=== PATIENT | female | born 1940 | race Caucasian/White ===

== ENCOUNTER 2016-08-12 09:22 | Inpatient (IN) ==
[2016-08-12 12:15] LABS: ALLEN TEST YES; BE 3.2 mmoll (-3.0-3.0); BLOOD TYPE ARTERIAL; DRAW SITE R RADIAL; PCO2(98.6) 37 mmHg (35-45); SAMPLE BLOOD; THB 11.7 g/dL (11.5-17.4); pH(98.6) 7.47 (7.35-7.45)
--- NOTE | 2016-08-12 12:20 | Diag Imaging Result Document ---
PROCEDURE NAME: CHEST-2 VIEWS - 08/12/2016 FRONTAL AND LATERAL CHEST, TWO VIEWS: FINDINGS: The lungs are hyperexpanded. There is an increased AP diameter to the chest. No consolidation. No cardiomegaly. No pleural effusions. There is a calcified granuloma in the left apex. IMPRESSION: Emphysema.
[2016-08-12 12:23] LABS: MANUAL DIFF NEEDED? NO
[2016-08-12 12:23] LABS: PO2(98.6) 46 mmHg (60-100)
[2016-08-12] MEDS: SODIUM CHLORIDE 0.9% INJ SCH (12:30)
[2016-08-12] MEDS: NS + KCL 20 MEQ 1,000 ML IV SCH (12:30)
[2016-08-12] MEDS: PROTONIX IV SCH (12:30)
[2016-08-12] MEDS: LOVENOX SUBQ SCH (12:30)
[2016-08-12] MEDS: LEVAQUIN 500 MG/D5W 500 MG/100 ML IVPB IV SCH (12:31)
[2016-08-12] MEDS: ROCEPHIN 1 GM/NS 1 GM/50 ML IVPB IV SCH (12:31)
[2016-08-12 12:36] LABS: BASO% 0.1 % (0.0-0.8); HEMATOCRIT 36.8 % (37.0-47.0); HEMOGLOBIN 12.4 g/dL (12.0-16.0); IMM GRAN# 0.02 X1000 (0.0-0.04); IMM GRAN% 0.2 % (0.0-0.5); LYMPH# 1.32 X1000 (1.2-3.4); LYMPH% 11.1 % (20.5-51.1); MCHC 33.7 g/dL (33-37); MCV 94.8 FL (81-99); MONO# 1.18 X1000 (0.11-0.59); MONO% 9.9 % (1.7-9.3); MPV 9.8 FL (7.4-10.4); NEUT% 78.7 % (42.2-75.2); PLT 241 X1000 (130-400); RBC 3.88 XMIL (4.2-5.4)
[2016-08-12] MEDS: SOLU-MEDROL IV SCH ×3 (12:39→20:01)
--- NOTE | 2016-08-12 13:24 | EKG Report ---
Test Performed on : 08/12/2016 1:00:38 PM Test Reason : copd Blood Pressure : / mmHG Vent. Rate : 073 BPM Atrial Rate : 073 BPM P-R Int : 138 ms QRS Dur : 070 ms QT Int : 400 ms P-R-T Axes : 081 -14 088 degrees QTc Int : 440 ms Normal sinus rhythm. Septal infarct (cited on or before 23-AUG-2014) Abnormal ECG When compared with ECG of 29-MAY-2015 09:44, Nonspecific T wave abnormality now evident in Lateral leads Confirmed by Ronald DUKES, James Villeda ([id number]) on 08/14/2016 5:33:48 PM
[2016-08-12 13:58] LABS: AGAP 15; ALBUMIN 3.5 g/dL (3.5-5.0); ALKALINE PHOSPHATASE 59 U/L (32-104); BUN 19 mg/dL (8-22); CALCIUM 8.8 mg/dL (8.8-10.2); CHLORIDE 94 mmol/L (98-107); COSMO 271; GOT 37 U/L (10-30); GPT 19 U/L (10-36); POTASSIUM 4.1 mmol/L (3.5-5.1); SODIUM 135 mmol/L (136-145); TCO2 26 mmol/L (25-35); TOTAL BILIRUBIN 0.17 mg/dL (0.20-1.00); TOTAL PROTEIN 6.7 g/dL (6.3-8.3)
[2016-08-12] MEDS: EXELON 13.3MG/24HRS TD SCH (17:04)
[2016-08-12] MEDS: DUONEB (A & A) INH SCH ×2 (17:14→21:40)
[2016-08-12] MEDS ORDERED: LACTULOSE PO PRN (17:36)
[2016-08-12] MEDS: SINGULAIR PO SCH (20:01)
[2016-08-12] MEDS: TOPROL XL PO SCH (20:01)
[2016-08-12] MEDS: NAMENDA PO SCH (20:01)
[2016-08-12] MEDS: REMERON PO SCH (20:01)
[2016-08-12] MEDS: AMBIEN PO SCH (20:01)
[2016-08-12] MEDS: NEURONTIN PO SCH (20:01)
--- NOTE | 2016-08-12 22:17 | HISTORY AND PHYSICAL ---
CHIEF COMPLAINT: Chest congestion and shortness of breath. HISTORY OF PRESENT ILLNESS: Ms. Campbell is a 75-year-old white female patient, who was sick for the last 4 to 5 days, chest congestion, cough, expectoration, feverish feeling, increasing shortness of breath, decreased exercise tolerance. The patient then came to my office on Friday. I started her on antibiotics because her recently , and they had visitation and on Friday and Friday. The patient took antibiotics. She was not doing better. The patient was getting sicker, increasing wheezing, shortness of breath, decreased exercise tolerance. I evaluated patient in my office, and decided to admit her for further care, as patient was not responding to outpatient treatment. The patient's oral intake was poor. She lost 7 to 8 pounds of weight in last few weeks. She denied any hemoptysis. She did have chills and fever, some pleuritic type of chest pain. Dull headache. The patient does have gastritis and reflux disease. No typical chest pain. Occasional palpitations. Denied any nausea or vomiting. No diarrhea, blood, or mucus in the stool. No dysuria or hematuria. Vague abdominal pain. The patient does feel depressed. No joint swelling or redness. No heat or cold intolerance. The patient does have dementia, at times confusion. Patient does have polymyalgia and, fatigue. No focal numbness, tingling, weakness. No further history available at this time. ALLERGIES: No known drug allergy. HOME MEDICATIONS: The patient was on prednisone, Ventolin HFA, Dexilant, , vitamin D3, Chlorazepate, vitamin B12, Cymbalta, Namenda, Exelon patch, vitamin B 12, folic acid, Neurontin, lactulose, lisinopril, metoprolol, Remeron, Ambien. PAST MEDICAL HISTORY: Significant for gastritis and reflux disease, COPD, hypertension, dementia, situational depression, osteoarthritis, polymyalgia rheumatica. PERSONAL HISTORY: A , nonsmoker. Denies alcohol or substance abuse. FAMILY HISTORY: Significant for dementia, hypertension and hyperlipidemia. REVIEW OF SYSTEMS: As per HPI. Otherwise unobtainable. PHYSICAL EXAMINATION: GENERAL: Elderly white female patient, in mild distress. VITAL SIGNS: Blood pressure 100/42, pulse 79, respiration 18, temperature 97.3. SKIN: Senile turgor. No rash or petechiae. HEENT: Head atraumatic, normocephalic. Lemmon conjunctivae. Anicteric sclerae. Extraocular muscle movement normal. Fundus cannot be penetrated. Good oral hygiene. No tonsillopharyngeal congestion or exudate. Ears and nose benign. NECK: Supple. No JVD, thyromegaly or lymphadenopathy. CHEST: Bilateral good air entry present. Bibasilar crepitation. Occasional wheezing. CARDIOVASCULAR: S1 and S2 heard. No gallop or thrill. ABDOMEN: Soft, globular. Bowel sounds present. Mild epigastric tenderness. No guarding or rigidity. EXTREMITIES: No cyanosis, clubbing. No acute DVT. AUDIOMETRIC TECHNICIAN: Alert, awake, able to move all 4 limbs. MUSCULOSKELETAL: No acute synovitis. Vague tenderness lumbosacral spine. CONSIDERATION: 1. Acute exacerbation of COPD. 2. Acute on chronic respiratory failure, not responding to outpatient treatment. 3. Polymyalgia rheumatica. 4. Dementia. 5. Gastritis. 6. Reflux disease. 7. History of hypertension. LAB DATA: Revealed leukocytosis with left shift. Hemoglobin 12.4, hematocrit 36.8, platelet count was 241,000. Blood gas pH 7.47, pCO2 of 37, PO2 was 46. The patient is hypoxemic. Electrolytes were fairly benign. Chest x-ray did reveal COPD. PLAN: Admit patient. IV antibiotics. Pulmonary toilet. Oxygen, continue home medicine. Overall plan discussed at length with the patient, and she is in agreement. cc: Clovis Villasenor MD
[2016-08-13] MEDS: DUONEB (A & A) INH SCH ×4 (04:00→21:00)
[2016-08-13] MEDS: NS + KCL 20 MEQ 1,000 ML IV SCH ×2 (06:01→11:33)
[2016-08-13] MEDS: SOLU-MEDROL IV SCH ×3 (06:01→20:27)
[2016-08-13] MEDS: VITAMIN B-12 PO SCH (08:25)
[2016-08-13] MEDS: FOLIC ACID PO SCH (08:25)
[2016-08-13] MEDS: CYMBALTA PO SCH (08:25)
[2016-08-13] MEDS: EXELON 13.3MG/24HRS TD SCH (08:25)
[2016-08-13] MEDS: NEURONTIN PO SCH ×2 (08:25→20:27)
[2016-08-13] MEDS: VITAMIN D PO SCH (08:25)
[2016-08-13] MEDS: NAMENDA PO SCH ×2 (08:26→20:29)
[2016-08-13] MEDS: FISH OIL CONCENTRATE PO SCH (08:26)
[2016-08-13] MEDS: TRANXENE PO SCH ×3 (08:30→17:38)
[2016-08-13] MEDS: PRINIVIL PO SCH (08:30)
[2016-08-13] MEDS ORDERED: PRINIVIL PO SCH (09:00)
--- NOTE | 2016-08-13 10:18 | PROGRESS NOTE ---
DATE: 08/13/2016 SUBJECTIVE: Ms Banda is doing better. She still has a cough, chest congestion, wheezing. No high-grade fever or chills. No nausea or vomiting. No typical chest pain. Denied any dysuria or hematuria. No unusual agitation. The patient does have dementia. Admitted with COPD exacerbation. Initial chest x-ray was negative for pneumonia. OBJECTIVE: Vital signs: Reviewed. Neck: Supple. No JVD. Lungs: Bilateral good air entry present. Bilateral expiratory wheezing. CVS: S1 and S2 heard. Abdomen: Soft, globular. Bowel sounds present. ACADEMIC SUPPORT DIRECTOR: Alert, awake. Able to move all 4 limbs. The patient's labs and medications noted. CONSIDERATIONS: 1. Chronic obstructive pulmonary disease exacerbation. 2. Respiratory failure. 3. Dementia. 4. Gastritis and reflux disease. 5. Situational depression. PLAN: We will continue current treatment. Her blood pressure is staying low-normal. I am going to decrease her Zestril. Will repeat blood work and chest x-ray in the morning. Overall plan discussed with the son and he is in agreement. cc: Clovis Villasenor MD
[2016-08-13] MEDS: LOVENOX SUBQ SCH (11:33)
[2016-08-13] MEDS: ROCEPHIN 1 GM/NS 1 GM/50 ML IVPB IV SCH (11:34)
[2016-08-13] MEDS: PROTONIX IV SCH (11:34)
[2016-08-13] MEDS ORDERED: TYLENOL PO PRN (14:06)
[2016-08-13] MEDS: LEVAQUIN 500 MG/D5W 500 MG/100 ML IVPB IV SCH (14:32)
[2016-08-13] MEDS: SODIUM CHLORIDE 0.9% INJ SCH (14:32)
[2016-08-13] MEDS: REMERON PO SCH (20:27)
[2016-08-13] MEDS: AMBIEN PO SCH (20:28)
[2016-08-13] MEDS: TOPROL XL PO SCH (20:29)
[2016-08-13] MEDS: SINGULAIR PO SCH (20:29)
[2016-08-14] MEDS: DUONEB (A & A) INH SCH ×4 (03:14→22:05)
[2016-08-14] MEDS: SOLU-MEDROL IV SCH ×3 (04:11→20:20)
[2016-08-14] MEDS: NS + KCL 20 MEQ 1,000 ML IV SCH ×3 (04:11→18:25)
[2016-08-14] MEDS ORDERED: NORCO-5 PO PRN (06:41)
--- NOTE | 2016-08-14 07:20 | PROGRESS NOTE ---
DATE: 08/14/2016 SUBJECTIVELY: Ms. Banda is doing better. She still has some cough. Chest congestion is less. No high-grade fever or chills. Shortness of breath is improving. No nausea or vomiting. Complaining of pain in the neck and lower back, musculoskeletal. Patient admitted with COPD exacerbation. Initial chest x-ray was negative for pneumonia. OBJECTIVE: Vital signs: Reviewed. Neck: Supple. No JVD. Lungs: Bilateral good air entry present. Occasional wheezing. CVS: S1 and S2 heard. Abdomen: Soft. No distention. Bowel sounds present. WELDER APPRENTICE ARC: Alert, awake, able to move all 4 limbs. Vague tenderness lumbosacral spine. CONSIDERATION/ASSESSMENT: 1. Chronic obstructive pulmonary disease exacerbation. 2. Low back pain and neck pain, musculoskeletal. 3. Patient does have dementia. 4. Her other problems includes clinical dehydration and weight loss. The patient is on Rocephin and Levaquin. Labs and medication noted. 5. Her other problem includes gastritis. I am going to follow today's labs. After reviewing the results, will make necessary recommendations. PLAN: Overall plan discussed with the patient and son they are in agreement. If clinical condition permits, we will plan discharging patient home tomorrow. cc: Clovis Villasenor MD
[2016-08-14] MEDS: PRINIVIL PO SCH (07:40)
[2016-08-14] MEDS: FOLIC ACID PO SCH ×2 (07:50→10:52)
[2016-08-14] MEDS: VITAMIN B-12 PO SCH ×2 (07:50→10:52)
[2016-08-14] MEDS: TRANXENE PO SCH ×4 (07:51→20:20)
[2016-08-14] MEDS: FISH OIL CONCENTRATE PO SCH ×2 (07:51→10:51)
[2016-08-14] MEDS: EXELON 13.3MG/24HRS TD SCH ×2 (07:52→10:51)
[2016-08-14] MEDS: CYMBALTA PO SCH ×2 (07:52→10:51)
[2016-08-14] MEDS: NAMENDA PO SCH ×3 (07:52→20:20)
[2016-08-14] MEDS: VITAMIN D PO SCH ×2 (07:52→10:53)
[2016-08-14] MEDS: NEURONTIN PO SCH ×3 (07:52→20:20)
--- NOTE | 2016-08-14 08:39 | Diag Imaging Result Document ---
PROCEDURE NAME: CHEST-2 VIEWS - 08/14/2016 PA AND LATERAL RADIOGRAPH OF THE CHEST: COMPARISON: 08/12/2016. FINDINGS: Emphysematous changes are again noted. There are no new consolidations identified. Cardiac silhouette is stable. IMPRESSION: Stable chest.
[2016-08-14 09:36] LABS: BASO% 0.3 % (0.0-0.8); EOS# 0.33 X1000 (0.0-0.7); EOS% 3.7 % (0.0-10.0); HEMATOCRIT 35.9 % (37.0-47.0); HEMOGLOBIN 11.7 g/dL (12.0-16.0); IMM GRAN# 0.06 X1000 (0.0-0.04); IMM GRAN% 0.7 % (0.0-0.5); LYMPH# 0.53 X1000 (1.2-3.4); LYMPH% 5.9 % (20.5-51.1); MANUAL DIFF NEEDED? YES; MCH 32.1 PG (27-31); MCHC 32.6 g/dL (33-37); MCV 98.4 FL (81-99); MONO# 0.34 X1000 (0.11-0.59); MONO% 3.8 % (1.7-9.3); MPV 11.2 FL (7.4-10.4); NEUT% 85.6 % (42.2-75.2); PLT 192 X1000 (130-400); RBC 3.65 XMIL (4.2-5.4)
[2016-08-14 09:56] LABS: BANDS 2 % (0-1); LYMPHS 8 % (21-51); MONO 8 % (1-9)
[2016-08-14 10:15] LABS: AGAP 20; ALBUMIN 3.1 g/dL (3.5-5.0); ALKALINE PHOSPHATASE 54 U/L (32-104); BUN 16 mg/dL (8-22); CALCIUM 8.9 mg/dL (8.8-10.2); CHLORIDE 99 mmol/L (98-107); COSMO 280; GOT 53 U/L (10-30); GPT 35 U/L (10-36); MAGNESIUM 1.7 mg/dL (1.5-2.7); POTASSIUM 4.8 mmol/L (3.5-5.1); SODIUM 138 mmol/L (136-145); TCO2 19 mmol/L (25-35); TOTAL BILIRUBIN 0.12 mg/dL (0.20-1.00); TOTAL PROTEIN 6.8 g/dL (6.3-8.3)
[2016-08-14] MEDS: ROCEPHIN 1 GM/NS 1 GM/50 ML IVPB IV SCH (11:43)
[2016-08-14] MEDS: PROTONIX IV SCH (11:43)
[2016-08-14] MEDS: SODIUM CHLORIDE 0.9% INJ SCH (11:43)
[2016-08-14] MEDS: LOVENOX SUBQ SCH (11:43)
[2016-08-14] MEDS: LEVAQUIN 500 MG/D5W 500 MG/100 ML IVPB IV SCH (12:57)
[2016-08-14] MEDS: AMBIEN PO SCH (20:20)
[2016-08-14] MEDS: SINGULAIR PO SCH (20:20)
[2016-08-14] MEDS: REMERON PO SCH (20:20)
[2016-08-14] MEDS: TOPROL XL PO SCH (20:21)
[2016-08-15] MEDS: DUONEB (A & A) INH SCH ×4 (03:30→20:35)
[2016-08-15] MEDS: SOLU-MEDROL IV SCH (05:14)
[2016-08-15] MEDS ORDERED: LASIX IV ONE (06:41)
[2016-08-15] MEDS: FISH OIL CONCENTRATE PO SCH (09:29)
[2016-08-15] MEDS: VITAMIN D PO SCH (09:29)
[2016-08-15] MEDS: VITAMIN B-12 PO SCH (09:29)
[2016-08-15] MEDS: FOLIC ACID PO SCH (09:29)
[2016-08-15] MEDS: CYMBALTA PO SCH (09:29)
[2016-08-15] MEDS: PRINIVIL PO SCH (09:29)
[2016-08-15] MEDS: TRANXENE PO SCH ×3 (09:29→17:00)
[2016-08-15] MEDS: NAMENDA PO SCH ×2 (09:30→20:48)
[2016-08-15] MEDS: EXELON 13.3MG/24HRS TD SCH (09:30)
[2016-08-15] MEDS: NEURONTIN PO SCH ×2 (09:30→20:48)
[2016-08-15] MEDS: PREDNISONE PO SCH (09:33)
--- NOTE | 2016-08-15 10:57 | PROGRESS NOTE ---
DATE: 08/15/2016 SUBJECTIVE: Subjectively, Ms. Banda is doing better. Chest congestion and cough is improving. The patient does get shortness of breath with exertion. She was able to ambulate better. No nausea or vomiting. No high-grade fever. Oral intake is fair. Her chest x-ray done yesterday was stable chest. It did show significant emphysema. No unusual agitation. At times O2 saturation was staying low. OBJECTIVE: Vital Signs: Her vital signs reviewed. Neck: Supple. No jugular venous distention. Lungs: Bibasilar, few crepitations. Occasional wheezing. Cardiovascular: S1 and S2 heard. Abdomen: Soft, globular. Bowel sounds present. Extremities: No cyanosis, clubbing. No acute deep venous thrombosis. SUPERVISOR METAL PLACING: Alert, awake, able to move all 4 limbs. CONSIDERATION: 1. Chronic obstructive pulmonary disease exacerbation. 2. Bronchitis. 3. Dementia. I am going to check her for home oxygen requirement and depression. 4. Peripheral neuropathy. Patient have psychiatrist appointment and family wants to take her for the same. We will continue current treatment. I am going to stop her Solu-Medrol. Change her to p.o. prednisone. Will repeat blood work today. Overall plan discussed with patient and son and they are in agreement. I am going to give her a small dose of IV Lasix for fluid retention. cc: Clovis Villasenor MD
[2016-08-15] MEDS: PROTONIX IV SCH (13:02)
[2016-08-15] MEDS: LOVENOX SUBQ SCH (13:02)
[2016-08-15] MEDS: SODIUM CHLORIDE 0.9% INJ SCH (13:02)
[2016-08-15] MEDS: ROCEPHIN 1 GM/NS 1 GM/50 ML IVPB IV SCH (13:03)
[2016-08-15] MEDS: LEVAQUIN 500 MG/D5W 500 MG/100 ML IVPB IV SCH (13:49)
[2016-08-15 17:10] LABS: AGAP 13; ALBUMIN 3.3 g/dL (3.5-5.0); ALKALINE PHOSPHATASE 52 U/L (32-104); BUN 29 mg/dL (8-22); CALCIUM 9.7 mg/dL (8.8-10.2); CHLORIDE 93 mmol/L (98-107); COSMO 272; GOT 61 U/L (10-30); GPT 61 U/L (10-36); POTASSIUM 4.4 mmol/L (3.5-5.1); SODIUM 132 mmol/L (136-145); TCO2 26 mmol/L (25-35); TOTAL BILIRUBIN < 0.10 mg/dL (0.20-1.00)
[2016-08-15] MEDS: TOPROL XL PO SCH (20:47)
[2016-08-15] MEDS: REMERON PO SCH (20:48)
[2016-08-15] MEDS: AMBIEN PO SCH (20:48)
[2016-08-15] MEDS: SINGULAIR PO SCH (20:48)
[2016-08-16] MEDS: DUONEB (A & A) INH SCH (04:12)
[2016-08-16 05:30] VITALS: BP 145/56
[2016-08-16] MEDS: ROCEPHIN 1 GM/NS 1 GM/50 ML IVPB IV SCH (06:40)
[2016-08-16] MEDS: PRINIVIL PO SCH (08:31)
[2016-08-16] MEDS: TRANXENE PO SCH (08:31)
[2016-08-16] MEDS: CYMBALTA PO SCH (08:31)
[2016-08-16] MEDS: VITAMIN D PO SCH (08:32)
[2016-08-16] MEDS: NAMENDA PO SCH (08:32)
[2016-08-16] MEDS: FISH OIL CONCENTRATE PO SCH (08:32)
[2016-08-16] MEDS: FOLIC ACID PO SCH (08:33)
[2016-08-16] MEDS: VITAMIN B-12 PO SCH (08:33)
[2016-08-16] MEDS: NEURONTIN PO SCH (08:33)
[2016-08-16] MEDS: EXELON 13.3MG/24HRS TD SCH (08:33)
[2016-08-16] MEDS: PREDNISONE PO SCH (08:33)
--- NOTE | 2016-08-16 16:39 | DISCHARGE SUMMARY ---
ADMISSION DATE: 08/12/2016 DISCHARGE DATE: 08/16/2016 FINAL DISCHARGE DIAGNOSES: 1. Chronic obstructive pulmonary disease exacerbation secondary to bronchitis. 2. Hypertension. 3. Gastritis and reflux disease. 4. Alzheimer's type dementia. 5. Situational depression. 6. Osteoarthritis. 7. Vitamin B12 deficiency. 8. History suggestive of peripheral neuropathy. HOSPITAL COURSE: Ms. Banda is a 75-year-old, white female patient complaining of chest congestion, cough, wheezing, shortness of breath not responding to outpatient treatment. She was getting more short of breath. I evaluated patient in the office. She was in mild to moderate respiratory distress. Her recently. We admitted patient to the hospital. On evaluation her initial blood gas did reveal PO2 of 46, pCO2 of 37, pH of 7.47. The patient was started on oxygen bronchodilator treatment, IV antibiotics, symptomatic treatment. Her clinical condition gradually stabilized and improved. The patient is doing better. Shortness of breath improved. She was ambulating well. Oral intake improving. Patient has appointment to see her psychiatrist today which they postponed a few times and they are eager to see him. I am planning to discharge her home today. I offered patient and son home health but they refused. OBJECTIVE: Vital Signs: Noted. Neck: Supple. No JVD. Lungs: Bilateral good air entry present. Wheezing improved. Cardiovascular: S1 and S2 heard. Abdomen: Soft, globular. Bowel sounds present. Extremities: No cyanosis, clubbing, edema. Central Nervous System: Alert, awake. Able to move all 4 limbs. DIAGNOSTIC: Chest x-ray done on the revealed COPD, no new consolidation. LAB DATA: CBC done yesterday. WBC count 8.99, hemoglobin 11.7, hematocrit 35.9, platelet count 192,000, electrolytes done yesterday fairly benign. BUN 29, creatinine 0.7. Her proBNP was 1677, AST 61, ALT 61. Blood culture was negative. Sputum culture was normal jerry. OVERALL DISCHARGE CONDITION: Satisfactory. DISCHARGE INSTRUCTIONS: The patient will be on a tapering dose of prednisone, Ceftin, home oxygen bronchodilator treatment. Her O2 saturation on room air at the time was 88. The patient was getting symptomatic. cc: Clovis Villasenor MD
== END 2016-08-16 09:00 | disposition home or self-care (01) ==
LOC: DIRADM 09:22 → 3N 09:36
PROVIDERS: ADMIT Internal Medicine; ATTEND Internal Medicine

== ENCOUNTER 2018-04-26 09:43 | Inpatient (IN) ==
[2018-04-26] MEDS ORDERED: NS 1,000 ML IV ONE ×2 (14:06→17:19)
[2018-04-26 14:22] LABS: BASO# 0.02 X1000 (0.0-0.2); BASO% 0.1 % (0.0-0.8); EOS# 0.02 X1000 (0.0-0.7); EOS% 0.1 % (0.0-10.0); HEMATOCRIT 42.8 % (37.0-47.0); IMM GRAN# 0.05 X1000 (0.0-0.04); IMM GRAN% 0.3 % (0.0-0.5); LYMPH# 1.07 X1000 (1.2-3.4); MCH 31.8 PG (27-31); MCHC 32.7 g/dL (33-37); MCV 97.3 FL (81-99); MONO# 1.19 X1000 (0.11-0.59); MONO% 7.8 % (1.7-9.3); MPV 9.8 FL (7.4-10.4); NEUT# 12.83 X1000 (1.4-6.5); NEUT% 84.7 % (42.2-75.2); PLT 410 X1000 (130-400); RDW 13.9 % (11.5-14.5); WBC 15.18 X1000 (4.8-10.8)
[2018-04-26 14:35] LABS: AGAP 14; ALBUMIN 4.1 g/dL (3.5-5.0); ALKALINE PHOSPHATASE 78 U/L (32-104); BUN 24 mg/dL (8-22); CALCIUM 9.9 mg/dL (8.8-10.2); CHLORIDE 96 mmol/L (98-107); COSMO 278; CREATININE 0.7 mg/dL (0.5-0.9); ESTIMATED GFR > 60; GLUCOSE 135 mg/dL (70-104); GOT 29 U/L (10-30); GPT 22 U/L (10-36); POTASSIUM 4.4 mmol/L (3.5-5.1); SODIUM 136 mmol/L (136-145); TCO2 26 mmol/L (25-35); TOTAL BILIRUBIN 0.52 mg/dL (0.20-1.00); TOTAL PROTEIN 8.2 g/dL (6.3-8.3)
--- NOTE | 2018-04-26 15:00 | Diag Imaging Result Doc PS360 ---
EXAM: CHEST-PORTABLE INDICATION: ams, dehydration TECHNIQUE: One view COMPARISON: 04/12/2018 FINDINGS: The lungs are grossly clear. There is no discrete pleural fluid collection or pneumothorax. The cardiomediastinal silhouette and central vasculature are grossly unremarkable. IMPRESSION: No evidence of acute pathology by plain radiograph. Electronically signed by Nimesh Agudelo 04/26/2018 2:58 PM
[2018-04-26] MEDS ORDERED: SODIUM CHLORIDE 0.9% INJ SCH (17:30)
[2018-04-26] MEDS ORDERED: PROTONIX IV SCH (17:30)
--- NOTE | 2018-04-26 18:40 | HISTORY AND PHYSICAL ---
DATE OF ADMISSION: 04/26/2018. PRIMARY CARE PROVIDER: Dr. Guicho Soliz. CHIEF COMPLAINT: Worsening confusion and dehydration. HISTORY OF PRESENT ILLNESS: Mrs. Banda is a [id number] female known to our service, recently discharged earlier this month for worsening confusion. She has a history of advanced Alzheimer's dementia, COPD, anxiety, and depression. She is unable to give any type of history. Her son, at the bedside, states that since she left last she has not gotten out of bed, she is not eating or drinking, she has become more confused. She was diagnosed with shingles last admission and has completed her valacyclovir therapy. She does have healing shingles over the right chest. There has been no fever to speak of. She has not been coughing any more than usual. No diarrhea. No vomiting. When she got here she was noted to be clearly volume depleted, mucous membranes extremely dry, lips cracked. She is slightly tachycardic and she does have a mild elevation in her BUN. As such, we are going to admit her for failure to thrive. PAST MEDICAL HISTORY: 1. Alzheimer's dementia. 2. Chronic COPD, on home O2. 3. Osteoarthritis. 4. Chronic pain. 5. Depression and anxiety. 6. Osteoporosis. PAST SURGICAL HISTORY: Hysterectomy, cerebral aneurysm coiling, tonsillectomy, and right ankle repair. SOCIAL HISTORY: Reformed smoker. No current tobacco, alcohol, or drug use. She lives with her children. One of her sons is at the bedside. FAMILY HISTORY: Noncontributory. REVIEW OF SYSTEMS: Unable to obtain. ALLERGIES: NO KNOWN DRUG ALLERGIES. HOME MEDICATIONS: Yet to be compiled. PHYSICAL EXAMINATION: VITAL SIGNS: Blood pressure is 176/92, heart rate 78, respiratory rate 18 and O2 saturation is 100% on 2 L via nasal cannula. Temperature is 97.9. GENERAL: Elderly and chronically ill appearing 77-year-old female lying in the hospital bed in no acute distress. NEUROLOGICAL: The patient is lethargic. Eyes open spontaneously. She does follow commands without focal deficits, but she is quite confused. HEENT: Normocephalic, atraumatic. Pupils are equal, round and reactive to light. Oral mucosa is extremely dry. Lips are cracked. NECK: Trachea is midline. There is no JVD. CHEST: Diminished, but clear to auscultation bilaterally. CV: Regular rate. S1, S2 is noted. GI: Soft. Nondistended. Nontender. Bowel sounds are hypoactive. EXTREMITIES: Without edema, clubbing, or cyanosis. Pulses are 1+ bilaterally. DIAGNOSTIC DATA: Chest x-ray is negative. WBC 15.18, hemoglobin 14, hematocrit 43.8, platelet count 410,000. Sodium 136, potassium 4.4, chloride 96, CO2 26, anion gap 14, BUN 24, creatinine 0.7, glucose 135. LFTs negative. Protein 8.2. ASSESSMENT AND PLAN: 1. Failure to thrive with volume contraction: Will continue intravenous fluids. Admit her to the floor. We spoke to the son at length regarding nutrition status and the fact that if she does not eat on her own, nutrition would be required, either intravenously or with a feeding tube, if that is what they would like. He states that they do not want any type of feeding tube. For now, will continue with intravenous fluids. 2. Dementia: Aware. Continue medications once compiled. 3. Chronic obstructive pulmonary disease: Stable, not in exacerbation. Continue oxygen. Pulmonary toilet and breathing treatments. 4. Depression and anxiety: Stable. Continue home medications. 5. Leukocytosis: Awaiting urinalysis. No fever. Chest x-ray was negative. Will monitor closely. 6. Deep venous thrombosis prophylaxis with sequential compression devices. CODE STATUS: Do Not Resuscitate, level 1. Dictated by DOMONIQUE Olmedo for Chito Lauren MD cc: DOMONIQUE Olmedo MD [facility]
[2018-04-26] MEDS ORDERED: CALMOSEPTINE OINTMENT TOP PRN (19:45)
[2018-04-26] MEDS ORDERED: BLISTEX MEDICATED BERRY LIP BALM TOP PRN (19:45)
[2018-04-26 20:47] LABS: URINE SOURCE CATH
[2018-04-26 20:49] LABS: BILIRUBIN URINE NEGATIVE (NEGATIVE); BLOOD URINE MODERATE (NEGATIVE); COLOR ORANGE; GLUCOSE URINE NEGATIVE (NEGATIVE); KETONE URINE NEGATIVE (NEGATIVE); LEUKOCYTES URINE LARGE (NEGATIVE); NITRITE URINE POSITIVE (NEGATIVE); PROTEIN URINE 100 mg/dL (NEGATIVE); SP GRAVITY URINE 1.021; TURBIDITY URINE TURBID (CLEAR); UROBILINOGEN URINE NORMAL (NORMAL)
[2018-04-26 21:00] LABS: UR EPITHELIAL CELLS >10 /HPF (<10); URINE BACTERIA 4+ /HPF; URINE RBC <10 /HPF (<10); URINE WBC TNTC /HPF (<10)
[2018-04-26 21:20] LABS: URINE CASTS GRANULAR PRESENT; URINE CRYSTALS NONE SEEN; URINE SMALL ROUND CELLS TRANS PRESENT; URINE YEAST NONE SEEN
--- NOTE | 2018-04-26 22:02 | HISTORY AND PHYSICAL ---
ADDENDUM: Patient has been evaluated by me face to face, all the laboratory images and vital signs were reviewed, her son is at the bedside which is the power of title attorney, this patient has Alzheimer dementia and she was recently discharged from this hospital due to acute encephalopathy, active herpes zoster infection affecting her chest, medial aspect of the right arm and back. She also has a diagnosis of anxiety, depression, chronic pain, osteoporosis and COPD and apparently she has been on home O2 at home. As per the son she was in her usual state of health until last Friday when she started having problem with eating and she was not strong enough to stand up or do her usual activities. As per the son there is no cough, fever, chills or any other problems but he brought the patient because he feels that she is dehydrated. Vital signs are stable. Actually the temperature is 98.6 degrees, pulse 90, respiratory 22, blood pressure 158/57, oxygen saturation 100% on oxygen, laboratory showed a leukocytosis. Her hemoglobin was 14 but previously during this hospitalization was low at between 10 and 11 and probably because she is dehydrated, BUN and creatinine stable. On physical exam she seems to be oriented to person. She is able to say her date of but she is not able to recognize her son at the bedside, she is following commands on and off as well and she seems to be really dehydrated, she already received a L of fluid and we are going to keep this patient on fluid on the floor, I am not sure if she can drink or eat anything, as per the son she has been refusing drinking or eating but sometimes she is able to drink something if she is using a straw, for now we will hydrate the patient. She will go to the floor. We will get more laboratory in the morning, we placed a Boss catheter that is basically without any urine. Hopefully tomorrow she will start voiding again. I had a large conversation with son about her DNR status and she will be placed DNR level 1. Tomorrow hopefully we are going to be able to restart the rest of her medications. cc: Chito Lauren MD
[2018-04-27 07:20] LABS: HEMATOCRIT 33.7 % (37.0-47.0); HEMOGLOBIN 10.9 g/dL (12.0-16.0); MCH 32.4 PG (27-31); MCHC 32.3 g/dL (33-37); MCV 100.3 FL (81-99); MPV 9.8 FL (7.4-10.4); RBC 3.36 XMIL (4.2-5.4); RDW 13.9 % (11.5-14.5); WBC 10.58 X1000 (4.8-10.8)
[2018-04-27] MEDS: LOVENOX SUBQ SCH (09:54)
[2018-04-27] MEDS ORDERED: LACTULOSE PO PRN (11:49)
[2018-04-27] MEDS ORDERED: APRESOLINE IV PRN (12:44)
[2018-04-27] MEDS: VITAMIN B-12 PO SCH (13:05)
[2018-04-27] MEDS: NS 1,000 ML IV SCH (13:06)
[2018-04-27] MEDS: ROCEPHIN 1 GM in NS 50 ML IV SCH (13:06)
--- NOTE | 2018-04-27 13:10 | PROGRESS NOTE ---
DATE: 04/27/2018 SUBJECTIVE: This patient seems to be more awake compared with yesterday. She does not look dehydrated today. Her mouth is not dry. She is oriented x1 just to person. She is able to say her date of on and off. She is able to move all 4 extremities especially upper extremities, but she does have generalized weakness. I do not think she has focal lesion. OBJECTIVE: Vital Signs: Temperature 99.1, pulse 87, respiratory rate 17, blood pressure 174/65, oxygen saturation 96 on 3 L of nasal cannula. HEENT: Head normocephalic. I do not see any trauma. PERRLA. Patient's head is directing towards the right side. When I asked to move the head to the left side, she is not able to do it. I am not quite sure if this is because of pulmonary spasm or just because she is not following commands. Neck: Supple. No JVD. Central trachea. Chest: Clear to auscultation. No wheezing. Some faint end-expiratory wheezing. Abdomen: Soft, nontender, nondistended. No hepatosplenomegaly. Extremities: No edema. No clubbing. No cyanosis. Neurological: The patient is alert. She is oriented x1. She is able to able to say her name. She looks more awake compared with yesterday. She moves all 4 extremities, but she has generalized weakness. She is following commands on and off. LABORATORY: WBC 10.5, hemoglobin 10.9, hematocrit 33.7, platelets 299,000. Pending BMP. ASSESSMENT AND PLAN: 1. Failure to thrive with severe dehydration. This patient received already some IV fluids, and she seems to be more stable. She does not look dehydrated at this moment, but I will continue with gentle IV fluids. 2. Urinary tract infection. She does have a positive urine culture that showed gram-negative rods. I have placed this patient on antibiotics, ceftriaxone. 3. History of chronic obstructive pulmonary disease, stable. She has been having some wheezing today. Continue with breathing treatment. 4. Dementia. Aware. I have continued with her home medications. 5. Depression and anxiety, stable. 6. Leukocytosis, resolved. 7. Deep vein thrombosis prophylaxis with sequential compression devices. 8. Hypertension. For now, we will use p.r.n. medications but probably we will put this patient on some blood pressure medication in the near future. 9. Resuscitation status. This patient is DNR level 1. cc: Chito Lauren MD
[2018-04-27] MEDS: NEURONTIN PO SCH (20:10)
[2018-04-27] MEDS: DEXILANT PO SCH (20:10)
[2018-04-27] MEDS: NAMENDA PO SCH (20:10)
[2018-04-28 07:08] LABS: HEMATOCRIT 35.7 % (37.0-47.0); HEMOGLOBIN 11.5 g/dL (12.0-16.0); MCH 32.4 PG (27-31); MCHC 32.2 g/dL (33-37); MCV 100.6 FL (81-99); MPV 9.8 FL (7.4-10.4); RBC 3.55 XMIL (4.2-5.4); RDW 13.6 % (11.5-14.5); WBC 10.86 X1000 (4.8-10.8)
[2018-04-28 07:31] LABS: AGAP 11; BUN 9 mg/dL (8-22); CHLORIDE 101 mmol/L (98-107); COSMO 272; CREATININE 0.4 mg/dL (0.5-0.9); ESTIMATED GFR > 60; GLUCOSE 87 mg/dL (70-104); POTASSIUM 4.3 mmol/L (3.5-5.1); SODIUM 137 mmol/L (136-145); TCO2 25 mmol/L (25-35)
[2018-04-28] MEDS: CYMBALTA PO SCH (11:30)
[2018-04-28] MEDS: NS 1,000 ML IV SCH (11:30)
[2018-04-28] MEDS: NAMENDA PO SCH ×2 (11:31→21:25)
[2018-04-28] MEDS: FISH OIL CONCENTRATE PO SCH (11:31)
[2018-04-28] MEDS: ROCEPHIN 1 GM in NS 50 ML IV SCH ×2 (11:31→16:29)
[2018-04-28] MEDS: DEXILANT PO SCH ×2 (11:31→21:25)
[2018-04-28] MEDS: LOVENOX SUBQ SCH (11:31)
[2018-04-28] MEDS: PREDNISONE PO SCH (11:32)
[2018-04-28] MEDS ORDERED: ULTRAM PO PRN (13:01)
--- NOTE | 2018-04-28 13:27 | PROGRESS NOTE ---
DATE: 04/28/2018 SUBJECTIVE: Followed by Dr. Guicho Soliz. This is a 77-year-old known to our service, recently discharged early this month for worsened confusion, history of advanced Alzheimer's dementia, COPD, anxiety, and depression. Unable to give much history. The son is very attentive. She has been more confused, more lethargic. She really does not have much appetite. She was diagnosed with shingles on last admission and completed her valacyclovir therapy. She has some healing over her right chest. They were considering trying to get her in to assisted living but they need to look for a shelter. She has advanced Alzheimer's dementia. PAST MEDICAL HISTORY: 1. Alzheimer's dementia. 2. Chronic COPD, on home O2. 3. Osteoarthritis. 4. Chronic pain. 5. Depression and anxiety. 6. Osteoporosis. PAST SURGICAL HISTORY: Hysterectomy, cerebral aneurysm coiling, tonsillectomy, and right ankle repair. PHYSICAL EXAMINATION: General: Today, she is awake. She seems to be comfortable. Vital signs: Remains afebrile. Temperature 98, pulse 84, respirations 14, blood pressure was 165/68. HEENT: Pupils are equal and round. Lungs: Clear in all lung stone anterolateral. Cardiovascular: Regular rhythm and rate without murmur or S3. Abdomen: Soft. Skin: Warm and dry. Urine output was 4,400 mL. DIAGNOSTIC STUDIES: Chest x-ray: No evidence of acute pathology by plain films. ASSESSMENT AND PLAN: 1. Failure to thrive with severe dehydration. Given her IV fluids. She seems to be doing a little better. Continue gentle IV fluids. 2. Urinary tract infection. Treating her with antibiotics, ceftriaxone. Her culture grew E. coli which is sensitive to cefazolin, so continue ceftriaxone. 3. Chronic obstructive pulmonary disease. No sign of exacerbation. 4. History of depression and anxiety with underlying dementia. Son feels like her home medicines were helping her. Would like to start them back again. We will not give her the hydrocodone. I am going to hold the montelukast. I am going to hold the Phenergan. I will put her back on her Exelon. Will continue, I guess, tramadol as needed. I guess I will put her back on her Ambien. cc: Thomas Clancy MD
[2018-04-28] MEDS: LEVAQUIN PO SCH (17:32)
[2018-04-28] MEDS ORDERED: AMBIEN CR PO SCH (21:00)
[2018-04-28] MEDS: NEURONTIN PO SCH (21:25)
[2018-04-29] MEDS: NS 1,000 ML IV SCH ×2 (06:28→09:12)
[2018-04-29 06:52] LABS: HEMATOCRIT 33.5 % (37.0-47.0); HEMOGLOBIN 11.1 g/dL (12.0-16.0); MCH 32.5 PG (27-31); MCHC 33.1 g/dL (33-37); MPV 9.8 FL (7.4-10.4); RBC 3.42 XMIL (4.2-5.4); RDW 13.2 % (11.5-14.5); WBC 9.06 X1000 (4.8-10.8)
[2018-04-29 07:18] LABS: AGAP 12; BUN 9 mg/dL (8-22); CALCIUM 7.5 mg/dL (8.8-10.2); CHLORIDE 100 mmol/L (98-107); COSMO 273; CREATININE 0.3 mg/dL (0.5-0.9); ESTIMATED GFR > 60; GLUCOSE 99 mg/dL (70-104); POTASSIUM 3.5 mmol/L (3.5-5.1); SODIUM 137 mmol/L (136-145); TCO2 25 mmol/L (25-35)
--- NOTE | 2018-04-29 09:04 | EKG Report ---
Test Performed on : 04/29/2018 08:58:35 AM Test Reason : Run of V tach Blood Pressure : / mmHG Vent. Rate : 086 BPM Atrial Rate : 086 BPM P-R Int : 116 ms QRS Dur : 076 ms QT Int : 398 ms P-R-T Axes : -22 -39 007 degrees QTc Int : 476 ms Normal sinus rhythm. Left axis deviation Minimal voltage criteria for LVH, may be normal variant Anteroseptal infarct (cited on or before 23-AUG-2014) Abnormal ECG When compared with ECG of 11-APR-2018 21:51, (Unconfirmed) premature ventricular complexes. are no longer present Nonspecific T wave abnormality now evident in Anterior leads Confirmed by Ronald DUKES, aJmes Villeda ([id number]) on 04/29/2018 5:34:53 PM
--- NOTE | 2018-04-29 09:13 | Diag Imaging Result Doc PS360 ---
EXAM: CHEST-PORTABLE 04/29/2018 HISTORY: Telemetry rhythm change TECHNIQUE: AP portable at 0856 COMMENT: There is some ill-defined opacity in the right apex which appears worse than on 04/26/2018. Otherwise there has been no significant change in the appearance of the chest. Compared to 04/12/2018 there has been no appreciable change. IMPRESSION: Questionable opacity in the right apex. Electronically signed by Marcello Piedra 04/29/2018 9:11 AM
[2018-04-29] MEDS: POTASSIUM CHLORIDE 20 MEQ/SWI 20 MEQ/100 ML IVPB IV SCH ×2 (10:02→12:10)
[2018-04-29] MEDS: FISH OIL CONCENTRATE PO SCH (10:03)
[2018-04-29] MEDS: EXELON 9.5MG/24HRS TD SCH (10:04)
[2018-04-29] MEDS: DEXILANT PO SCH ×2 (10:04→21:19)
[2018-04-29] MEDS: CYMBALTA PO SCH (10:04)
[2018-04-29] MEDS: NAMENDA PO SCH ×2 (10:04→21:19)
[2018-04-29] MEDS: LEVAQUIN PO SCH (10:04)
[2018-04-29] MEDS: PREDNISONE PO SCH (10:04)
[2018-04-29] MEDS: LOVENOX SUBQ SCH (10:04)
--- NOTE | 2018-04-29 12:45 | PROGRESS NOTE ---
DATE: 04/29/2018 SUBJECTIVE: Ms. Banda seems to be doing okay, feels comfortable this morning. OBJECTIVE: Vital signs: Temperature 97.6, pulse 82, respirations 16, blood pressure 140/63. Lungs: Clear in all lung stone. Cardiovascular: Regular rhythm and rate without murmur or S3. Abdomen: Soft. Skin: Warm and dry. Urine output was 1400 mL. DIAGNOSTIC DATA: Chest x-ray from this morning: Questionable past in the right apex. A small ill-defined opacity right apex appears to be worse than 04/26/2018. Otherwise, no significant change in appearance of chest. There has been no appreciable change since 04/12/2018. ASSESSMENT AND PLAN: 1. Failure to thrive, severe dehydration. Continue intravenous fluids. Doing a little bit better. 2. Urinary tract infection. Continue present antibiotics. She grew Escherichia coli, which was sensitive to cefazolin. She is on ceftriaxone. 3. Chronic obstructive pulmonary disease. No sign of exacerbation. 4. History of depression, and anxiety, and underlying dementia. She seems to be improving. I think we are looking for going back to [facility], probably will need to go to rehab. REVIEW OF HER MEDICATIONS: She is on Exelon 1 patch daily, omega-3 fatty acids once a day, and Levaquin 500 mg p.o. daily, Cymbalta 90 mg a day, Dexilant and she getting 60 mg twice a day, Neurontin 300 mg at bedtime, vitamin B12 1000 mcg daily. Continue present regimen. Continue physical therapy. Social service involved. Maybe can be ready for discharge soon. cc: Thomas Clancy MD
--- NOTE | 2018-04-29 15:02 | PROVIDER DOCUMENTATION ---
This chart was entered by Neville Colbert Scribe, acting as scribe for Barber Valenzuela MD. HPI-General Adult - General Chief Complaint: General Adult Stated Complaint: DEHYDRATION Time Seen by Provider: 04/26/18 13:40 Source: patient, family Allergies/Adverse Reactions: Patient Allergies Allergy/AdvReac Type Severity Reaction Status Date / Time No Known Allergies Allergy Verified 04/26/18 11:39 Home Medications: Home Medication List Medication Instructions Recorded Confirmed Last Taken Type Cyanocobalamin (Vitamin B-12) 1,000 mcg PO DIRECTED 05/29/15 04/12/18 History [B-12] Dexlansoprazole [Dexilant] 60 mg PO BID 05/29/15 04/12/18 04/11/18 History Duloxetine [Cymbalta] 90 mg PO DAILY 05/29/15 04/12/18 04/11/18 History Gabapentin 300 mg PO QHS 05/29/15 04/12/18 04/11/18 History [place]-3S/Dha/Epa/Fish Oil [[place]-3 1 each PO DAILY 05/29/15 04/12/18 04/11/18 History Fish Oil 1,000 mg Sfgl] Rivastigmine [Exelon] 19.5 mg TD DAILY 05/29/15 04/12/18 04/11/18 History Memantine [Namenda] 10 mg PO BID #0 tablet 05/30/15 04/12/18 04/11/18 Rx Mirtazapine 45 mg PO HS 08/12/16 04/12/18 04/11/18 History Montelukast Sodium 10 mg PO HS 08/12/16 04/12/18 04/11/18 History Lactulose 15 ml PO DAILY PRN #300 solution 05/23/17 04/12/18 04/11/18 Rx Prednisone 1 mg PO DAILY 12/17/17 04/12/18 04/11/18 History Albuterol 2.5MG/Ipratrop 0.5MG 3 ml INH Q4H PRN PRN #1 b 01/31/18 04/12/1804/11 Rx [Duoneb (A & A)] Hydrocodone/Acetaminophen [[place] 1 each PO PRN PRN 03/09/18 04/12/18 04/11/18 History 5-325 Tablet] Hydrocodone/Acetaminophen [[place] 1 each PO Q4H PRN PRN #40 tablet 03/10/1804/1204/11/18 Rx 5-325 Tablet] Promethazine [Phenergan] 25 mg PO Q6-8H PRN PRN #20 tablet 03/10/18 04/12/18 Rx Valacyclovir HCl [Valacyclovir] 1,000 mg PO BID #12 tab 04/12/18 Unknown Rx - History of Present Illness -Gen Adult Nature of Presenting Problems: 77 yof presents to ed with son with cc of weakness. Reports has not been able to walk since last friday and has been talking out of her head. Reports hx of alzheimers for past 10 years. Review of Systems - Adult - REVIEW OF SYSTEMS - ADULT Constitutional: denies: chills, fever, fatique Eyes: reports: no symptoms reported Ears, Nose, Mouth & Throat: reports: no symptoms reported Cardiovascular: denies: chest pain, irregular heart rate, orthopnea, syncope Respiratory: reports: no symptoms reported Gastrointestinal: denies: abdominal pain, diarrhea, nausea, vomiting Genitourinary: reports: no symptoms reported Musculoskeletal: reports: other (generalized weakness). denies: bone pain, joint pain, neck pain Integumentary: reports: no symptoms reported Neurological: reports: see HPI. denies: ataxia, dizziness/vertigo, headache/ migraines, loss of balance, numbness, paresthesia, seizure, slurred speech Psychiatric: reports: no symptoms reported Endocrine: reports: no symptoms reported Hematologic/Lymphatic: reports: no symptoms reported Allergic/Immunologic: reports: no symptoms reported All Other Systems: Reviewed and Negative Past History - Adult - PAST MEDICAL HISTORY-ADULT Review of Records: reports: Nursing Assessment Review, Medications Reviewed Major Childhood Illnesses: reports: denies history Cardiovascular: reports: HTN Respiratory: reports: asthma, COPD Gastrointestinal: reports: denies history Obstetrical/Gynecological: reports: denies history Genitourinary: reports: denies history Musculoskeletal: reports: denies history Neurological: reports: Alzheimer's, dementia Psychiatric: reports: denies history Endocrine/Immune: reports: denies history Other Conditions: reports: denies history - PRIOR SURGERIES/PROCEDURES Surgical/Procedure History: reports: hysterectomy, tonsillectomy - IMMUNIZATION STATUS Childhood Immunizations: See Nurse Assessment Flu Vaccine: See Nurse Assessment - FAMILY HISTORY Family History: reviewed, not pertinent - SOCIAL HISTORY Smoking: denies Substance Use: none/never Physical Exam-General - PHYSICAL EXAM-ADULT Initial Vital Signs Reviewed: Yes - CONSTITUTIONAL General Appearance: alert (when spoken to or touched). negative: appears well - EYES Eyes: PERRL/EOMI - HEAD, EARS, NOSE, MOUTH & THROAT HENMT: negative: moist mucous membranes (dry) - NECK Neck: supple, normal inspection - RESPIRATORY Respiratory: chest non-tender, lungs clear, normal breath sounds - CARDIOVASCULAR Cardiovascular: regular rate, rhythm - GASTROINTESTINAL (ABDOMEN) Abdominal Exam: non tender, soft, no organomegaly, no pulsatile mass - MUSCULOSKELETAL Extremity: normal range of motion, no pedal edema, other (right ankle brace) Peripheral Pulses: dorsalis-pedis (R): 2+, dorsalis-pedis (L): 2+ - SKIN Integumentary: warm/dry, pallor - NEUROLOGIC Neurologic: other (difficult speech.). negative: grossly normal - PSYCHIATRIC Psych/Mental Status: other (difficult speech). negative: normal mood/affect, oriented x 3 (oriented x 1) Progress - PLAN OF CARE/RESULTS Progress/Plan/Lab Results: Vital Signs - 8 hr 04/26/18 09:46 Temperature 97.9 F Pulse Rate 98 H Respiratory Rate 18 Blood Pressure 176/92 O2 Sat by Pulse Oximetry 100 Orders Category Date Time Status CBC WITH ELECTRONIC DIFF [HEME] Stat Lab 04/26/18 13:39 Uncollected COMPREHENSIVE METABOLIC PANEL [CHEM] Stat Lab 04/26/18 13:[address] W/POSS RFLX CULT [URINALYSIS] Stat Lab 04/26/18 13:39 Uncollected Result Diagrams: 04/26/18 14:08 04/26/18 14:08 - CONSULTS/PCP/HOSPITALIST Notification #1 *Consult/PCP/Hospitalist*: Dr Thompson Time Discussed: 15:36 Consult Disposition: Admit Departure - Departure Date of Disposition Decision: 04/26/18 Time of Disposition Decision: 15:30 DIAGNOSIS: Dehydration, Altered mental status Disposition: ADMITTED INPATIENT 09 Certified Medical Emergency: Emergent Condition: Stable Referrals and Follow-Ups: Guicho Soliz MD [Primary Care Provider] - - Critical Care Note This patient required my direct & personal management of CC.: No Attestation - Physician/ ELISE Attestation Patient care was provided by Advanced Practice Provider:: No The physician spent face to face time with patient:: Yes Advanced Practice Provider documentation review:: Supervising physician onsite and consulted in the evaluation and care of this patient. The physician did have a face to face encounter with the patient. This chart was documented by the indicated scribe, (Neville Colbert Scribe) and accurately reflects the services I performed and decisions made by me, Barber Valenzuela MD, as attested by the provider's signature.
[2018-04-29] MEDS: VITAMIN B-12 PO SCH (17:13)
[2018-04-29] MEDS: NEURONTIN PO SCH (21:19)
[2018-04-29] MEDS: AMBIEN PO SCH (23:39)
[2018-04-30] MEDS: NS 1,000 ML IV SCH ×2 (03:44→23:37)
[2018-04-30 06:52] LABS: HEMATOCRIT 32.5 % (37.0-47.0); HEMOGLOBIN 10.5 g/dL (12.0-16.0); MCH 32.1 PG (27-31); MCHC 32.3 g/dL (33-37); MCV 99.4 FL (81-99); MPV 9.4 FL (7.4-10.4); RBC 3.27 XMIL (4.2-5.4); RDW 13.2 % (11.5-14.5); WBC 6.13 X1000 (4.8-10.8)
[2018-04-30 07:55] LABS: AGAP 9; BUN 8 mg/dL (8-22); CHLORIDE 104 mmol/L (98-107); COSMO 274; CREATININE 0.4 mg/dL (0.5-0.9); ESTIMATED GFR > 60; GLUCOSE 101 mg/dL (70-104); POTASSIUM 3.6 mmol/L (3.5-5.1); SODIUM 138 mmol/L (136-145); TCO2 25 mmol/L (25-35)
[2018-04-30] MEDS: NAMENDA PO SCH ×2 (09:32→20:28)
[2018-04-30] MEDS: CYMBALTA PO SCH (09:32)
[2018-04-30] MEDS: DEXILANT PO SCH ×2 (09:32→20:28)
[2018-04-30] MEDS: EXELON 9.5MG/24HRS TD SCH (09:32)
[2018-04-30] MEDS: LEVAQUIN PO SCH (09:32)
[2018-04-30] MEDS: PREDNISONE PO SCH (09:32)
[2018-04-30] MEDS: LOVENOX SUBQ SCH (09:33)
[2018-04-30] MEDS: FISH OIL CONCENTRATE PO SCH (09:40)
--- NOTE | 2018-04-30 16:13 | PROGRESS NOTE ---
DATE: 04/30/2018 SUBJECTIVE: Ms. Banda is feeling better. Her abdomen is feeling better. She is getting a little stronger. She still has her Boss catheter in. I think we will try and take it out on Friday. This is . It looks like she will be here the weekend. She will need several more days and then the plan is to go to rehab in [facility], I believe, on Friday. OBJECTIVE: Vital Signs: Temperature 98.2 degrees, pulse 84, respirations 16, blood pressure 138/53. Urine output was 1800 mL. HEENT: Pupils are equal and round. Lungs: Clear in all lung stone. Cardiovascular: Regular rhythm and rate without murmur or S3. Abdomen: Soft. Skin: Warm and dry. ASSESSMENT AND PLAN: 1. Failure to thrive, severe dehydration. Received some intravenous fluids. 2. Urinary tract infection, grew out Escherichia coli. It is well treated. 3. Chronic obstructive pulmonary disease. No sign of exacerbation. 4. Depression and anxiety with underlying dementia. Continue physical therapy. Plan is to go to rehab on Friday. She is eating pretty good. Her bowels are moving. She is on Neurontin 300 mg at bedtime and she is on high-dose dexlansoprazole 60 mg twice a day, Cymbalta 90 mg a day, Apresoline just as needed, lactulose 15 mL daily, Levaquin 500 mg a day, Namenda 10 mg b.i.d., omega-3 fatty acids 1000 mg a day, prednisone 1 mg daily, Exelon daily, and Ultram 50 mg q.6 hours p.r.n. cc: Thomas Clancy MD
[2018-04-30] MEDS: AMBIEN PO SCH (20:28)
[2018-04-30] MEDS: NEURONTIN PO SCH (20:28)
[2018-05-01 07:13] LABS: HEMOGLOBIN 11.8 g/dL (12.0-16.0); MCH 32.1 PG (27-31); MCHC 32.8 g/dL (33-37); MCV 97.8 FL (81-99); MPV 9.8 FL (7.4-10.4); RBC 3.68 XMIL (4.2-5.4); WBC 6.41 X1000 (4.8-10.8)
[2018-05-01 07:38] LABS: AGAP 12; BUN 7 mg/dL (8-22); CALCIUM 8.1 mg/dL (8.8-10.2); CHLORIDE 102 mmol/L (98-107); COSMO 272; CREATININE 0.4 mg/dL (0.5-0.9); ESTIMATED GFR > 60; GLUCOSE 105 mg/dL (70-104); POTASSIUM 3.8 mmol/L (3.5-5.1); SODIUM 137 mmol/L (136-145); TCO2 23 mmol/L (25-35)
[2018-05-01] MEDS: LEVAQUIN PO SCH (08:17)
[2018-05-01] MEDS: CYMBALTA PO SCH (08:17)
[2018-05-01] MEDS: PREDNISONE PO SCH (08:17)
[2018-05-01] MEDS: FISH OIL CONCENTRATE PO SCH (08:17)
[2018-05-01] MEDS: DEXILANT PO SCH ×2 (08:17→21:33)
[2018-05-01] MEDS: NAMENDA PO SCH ×2 (08:17→21:33)
[2018-05-01] MEDS: EXELON 9.5MG/24HRS TD SCH (08:18)
[2018-05-01] MEDS: LOVENOX SUBQ SCH (08:18)
[2018-05-01] MEDS: VITAMIN B-12 PO SCH (12:52)
--- NOTE | 2018-05-01 15:10 | PROGRESS NOTE ---
DATE: 05/01/2018 SUBJECTIVE: Ms. Banda says she is feeling about the same. She is a little more energetic yesterday. Her son would like just to try physical therapy again. She is scheduled to try and go back to the [facility] on Friday. OBJECTIVE: Temperature 92, pulse 20, respirations 20, BP 173/69. Pupils are equal and round. Lungs are clear in all lung stone. Cardiovascular: Regular rate without murmur or S3. Abdomen is soft. Skin is warm and dry. Urine output is 2800 mL. ASSESSMENT AND PLAN: 1. Failure to thrive. 2. Severe dehydration. She has received fluids well. 3. Urinary tract infection. I think this is well treated. 4. Chronic obstructive pulmonary disease. No sign of exacerbation. Breathing comfortably. 5. Depression with anxiety. 6. Underlying dementia. Continue physical therapy; we will try again to see if it will help with her overall strength. Plan is to try and get her back to the [facility] on Friday at [facility]. cc: Thomas Clancy MD
[2018-05-01] MEDS: DUONEB (A & A) INH PRN (16:36)
[2018-05-01] MEDS: NS 1,000 ML IV SCH (21:29)
[2018-05-01] MEDS: AMBIEN PO SCH (21:33)
[2018-05-01] MEDS: NEURONTIN PO SCH (21:33)
[2018-05-02 07:52] LABS: AGAP 18; BUN 10 mg/dL (8-22); CALCIUM 8.6 mg/dL (8.8-10.2); CHLORIDE 96 mmol/L (98-107); COSMO 266; CREATININE 0.5 mg/dL (0.5-0.9); ESTIMATED GFR > 60; GLUCOSE 142 mg/dL (70-104); POTASSIUM 4.4 mmol/L (3.5-5.1); SODIUM 132 mmol/L (136-145); TCO2 18 mmol/L (25-35)
[2018-05-02] MEDS: DUONEB (A & A) INH PRN ×4 (07:53→19:45)
[2018-05-02] MEDS ORDERED: TYLENOL PO PRN (07:59)
[2018-05-02] MEDS ORDERED: LASIX IV ONE (08:15)
[2018-05-02] MEDS ORDERED: TYLENOL PRN (08:21)
--- NOTE | 2018-05-02 10:57 | PROGRESS NOTE ---
DATE: 05/02/2017 SUBJECTIVE: Ms. Banda is struggling to breathe. OBJECTIVE: Temp went up to 102.6, pulse 111, respirations 24, blood pressure 183/78. Lungs with scattered rhonchi. She is on a non-rebreather. Upper airway secretions. Increased work of breathing and agonal. Respirations increased very poor prognosis. The family at the bedside. ASSESSMENT AND PLAN: Suspect aspiration pneumonia. Suspect she could have some underlying coronary insufficiency. We will keep her comfortable. She has underlying profound dementia, and I did give her a dose of Lasix. I think her prognosis is very poor. We will not change any of her orders at the present time. cc: Thomas Clancy MD MTDD
[2018-05-02] MEDS: DEXILANT PO SCH (11:26)
[2018-05-02] MEDS: CYMBALTA PO SCH (11:26)
[2018-05-02] MEDS: EXELON 9.5MG/24HRS TD SCH (11:26)
[2018-05-02] MEDS: FISH OIL CONCENTRATE PO SCH (11:27)
[2018-05-02] MEDS: PREDNISONE PO SCH (11:27)
[2018-05-02] MEDS: LEVAQUIN PO SCH (11:27)
[2018-05-02] MEDS: NAMENDA PO SCH (11:27)
[2018-05-02] MEDS: LOVENOX SUBQ SCH (11:27)
[2018-05-02] MEDS: ATIVAN IV PRN ×3 (12:22→23:59)
[2018-05-02] MEDS: TYLENOL PR PRN (18:30)
[2018-05-02] MEDS: NS 1,000 ML IV SCH (18:33)
[2018-05-03] MEDS: AMBIEN PO SCH ×2 (00:20→21:32)
[2018-05-03] MEDS: DEXILANT PO SCH ×3 (00:21→21:31)
[2018-05-03] MEDS: NAMENDA PO SCH ×3 (00:22→21:33)
[2018-05-03] MEDS: NEURONTIN PO SCH ×2 (00:22→21:33)
[2018-05-03] MEDS: ATIVAN IV PRN ×6 (03:03→21:26)
[2018-05-03] MEDS: TYLENOL PR PRN ×2 (04:16→21:22)
[2018-05-03] MEDS: DUONEB (A & A) INH PRN ×5 (08:31→23:20)
[2018-05-03] MEDS: CYMBALTA PO SCH (10:13)
[2018-05-03] MEDS: LOVENOX SUBQ SCH (10:18)
[2018-05-03] MEDS: LEVAQUIN PO SCH (10:18)
[2018-05-03] MEDS: PREDNISONE PO SCH (10:18)
[2018-05-03] MEDS: FISH OIL CONCENTRATE PO SCH (10:18)
[2018-05-03] MEDS: EXELON 9.5MG/24HRS TD SCH (10:18)
[2018-05-03] MEDS: MORPHINE IV PRN ×4 (11:07→21:21)
[2018-05-03] MEDS: NS 1,000 ML IV SCH (17:18)
--- NOTE | 2018-05-03 17:28 | PROGRESS NOTE ---
DATE: 05/03/2018 Ms. Campbell still agonal breathing. She has on a non-rebreather. She appears comfortable. She has not responded or woke up for anybody, still have a fever 101.2, pulse 130, respirations 36, blood pressure 123/66. Pupils are equal and round.Lungs: Clear in all lung stone. Cardiovascular: Regular rhythm, rate without murmur or S3. Abdomen: Soft. Skin: Warm and dry. ASSESSMENT AND PLAN: Suspect aspiration pneumonia with underlying dementia, underlying coronary artery disease. She is actively dying. Upper airway secretions. I do not suspect she will live long. cc: Thomas Clancy MD
[2018-05-04] MEDS: DUONEB (A & A) INH PRN (03:45)
[2018-05-04] MEDS: MORPHINE IV PRN ×4 (05:06→22:20)
[2018-05-04] MEDS: TYLENOL PR PRN (05:11)
[2018-05-04] MEDS: CYMBALTA PO SCH (08:08)
[2018-05-04] MEDS: PREDNISONE PO SCH (08:09)
[2018-05-04] MEDS: NAMENDA PO SCH ×2 (08:09→22:25)
[2018-05-04] MEDS: LEVAQUIN PO SCH (08:09)
[2018-05-04] MEDS: LOVENOX SUBQ SCH (08:09)
[2018-05-04] MEDS: FISH OIL CONCENTRATE PO SCH (08:09)
[2018-05-04] MEDS: DEXILANT PO SCH ×2 (08:10→22:25)
[2018-05-04] MEDS: EXELON 9.5MG/24HRS TD SCH (08:10)
--- NOTE | 2018-05-04 13:13 | PROGRESS NOTE ---
DATE: 05/04/2018 SUBJECTIVE: Ms. Banda has agonal respirations. She has not responded. Seems to be respirations more shallow. Appears comfortable. Has not responded to family. OBJECTIVE: Lungs: Clear. Cardiovascular: Regular rhythm and rate. Abdomen: Soft. IMPRESSION: Poor prognosis. Suspect pneumonia with underlying end-stage chronic obstructive pulmonary disease and dementia. Severe protein calorie malnutrition. Family wants to continue comfort measures. Prognosis very poor. Suspect that she will soon. cc: Thomas Clancy MD
[2018-05-04] MEDS: VITAMIN B-12 PO SCH (14:24)
[2018-05-04] MEDS: NS 1,000 ML IV SCH (14:24)
[2018-05-04 19:41] VITALS: BP 113/55
[2018-05-04] MEDS: AMBIEN PO SCH (22:25)
[2018-05-04] MEDS: NEURONTIN PO SCH (22:26)
--- NOTE | 2018-05-08 09:12 | DISCHARGE SUMMARY ---
ADMISSION DATE: 04/26/2018 DISCHARGE DATE: 05/05/2018 SUMMARY TIME OF : 2325 on 05/05/2018. HOSPITAL COURSE: The patient was admitted on 04/26/2018. Her doctor is Dr. Guicho Soliz. Came in with worsening confusion and dehydration. A 77-year-old female, well known to our service. Recently discharged early this month for worsening confusion, history of advanced Alzheimer's dementia, COPD, anxiety, and depression. Unable to give any type of history. Her son was at the bedside. On admission, states that she had not gotten out of bed since she had left. Was not eating or drinking and became more confused. I believe that she says she has not gotten out of bed since she left the hospital. Was diagnosed with shingles on admission, last time completed her valaciclovir and healing shingles; was noted over the right chest. They have not noted any fever. She had not been coughing any more than usual. No diarrhea or vomiting. She presented, looked to be volume depleted. Mucous membranes extremely dry. lips are cracked, slightly tachycardiac. Did have mild elevation of BUN. PAST MEDICAL HISTORY: 1. Alzheimer dementia. 2. Chronic COPD on home O2. 3. Osteoarthritis. 4. Chronic pain. 5. Depression and anxiety. 6. Osteoporosis. So, admitted with failure to thrive, volume contraction, and they gave her some fluids. Nutritional status looked poor, so protein calorie malnutrition, and then with underlying dementia, continued her medications in this regard. She does have underlying COPD. Did not feel like it was exacerbation of COPD. They continued her O2, pulmonary toilet, and pulmonary treatments and then history of underlying depression and anxiety, history of leukocytosis. Chest x-ray, from 04/29/2018, questionable opacity in the right apex. Continued on antibiotics. Her bowels are moving. Her abdomen was feeling better. She had a Boss catheter in place. We suspect she had aspiration pneumonia. We know she has underlying coronary artery disease, but did not appear to show any improvement and appeared to be actively dying. Family wanted comfort measures. Very poor prognosis, and she was pronounced at 2325 on 05/05/2018. cc: Thomas Clancy MD
== END 2018-05-04 23:15 | disposition expired | DRG 640 ==
LOC: ED 09:43 → 3N 17:27 → SUATTDRO 17:27 → 3N 05-02 14:02
PROVIDERS: ATTEND Emergency Medicine
CPT/HCPCS: 36415; 51702; 71010; 71045; 80048; 80053; 81001; 82550; 83880; 84484; 85025; 85027; 87077; 87088; 87186; 93005; 93010; 94640; 94761; 97161; 99285; A9270; C9113; J0696; J1650; J1940; J2060; J2270; J3480; J7030; S0164